=== PATIENT | male | born 1935 | race Caucasian/White ===

== ENCOUNTER 2019-04-16 13:37 | Emergency (ER) | payer MEDICARE, OTHER ==
--- NOTE | 2019-04-16 14:35 | EDM.PDOC ---
ED HPI GENERAL MEDICAL PROBLEM - General Chief Complaint: ENT Problem Stated Complaint: EARS ARE PLUGGED Time Seen by Provider: 04/16/19 14:20 Source of Information: Reports: Patient, Family History Limitations: Reports: No Limitations - History of Present Illness INITIAL COMMENTS - FREE TEXT/NARRATIVE: 83-year-old male had a physical or medical checkup a week ago and was told he had significant wax in his ears. He has tried some drops but it isn't helping, so he thought he would come in today to get his ears cleaned. He has no pain, just decreased hearing bilaterally. Onset: Gradual Duration: Week(s): (Over the past several weeks) Associated Symptoms: Reports: No Other Symptoms - Related Data Allergies Allergy/AdvReac Type Severity Reaction Status Date / Time No Known Allergies Allergy Verified 04/16/19 14:14 Home Meds: Home Meds . [Unable to Verify Home Med List] 04/16/19 [History] Past Medical History HEENT History: Reports: Impaired Vision Cardiovascular History: Reports: Heart Failure, High Cholesterol, Hypertension Respiratory History: Reports: SOB Gastrointestinal History: Reports: Chronic Constipation, GERD, Other (See Below) Other Gastrointestinal History: bleeding ulcer Musculoskeletal History: Reports: Back Pain, Chronic Oncologic (Cancer) History: Reports: Basal Cell Carcinoma, Other (See Below) Other Oncologic History: outside of stomach - Infectious Disease History Infectious Disease History: Reports: Chicken Pox, Measles, Mumps, Pertussis ( Whooping Cough), Rheumatic Fever - Past Surgical History Head Surgeries/Procedures: Reports: None HEENT Surgical History: Reports: None Cardiovascular Surgical History: Reports: Coronary Artery Bypass Respiratory Surgical History: Reports: None GI Surgical History: Reports: Colonoscopy Musculoskeletal Surgical History: Reports: Knee Replacement Oncologic Surgical History: Reports: None Dermatological Surgical History: Reports: None Social & Family History - Tobacco Use Smoking Status *Q: Former Smoker Used Tobacco, but Quit: Yes Month/Year Tobacco Last Used: 1964 - Caffeine Use Caffeine Use: Reports: Coffee - Recreational Drug Use Recreational Drug Use: No ED ROS ENT - Review of Systems Review Of Systems: See Below Constitutional: Denies: Fever, Chills Respiratory: Denies: Shortness of Breath Cardiovascular: Denies: Chest Pain GI/Abdominal: Denies: Nausea, Vomiting Neurological: Denies: Headache ED EXAM, ENT - Physical Exam Exam: See Below Exam Limited By: No Limitations General Appearance: Alert, No Apparent Distress Ears: Other (Patient does have fairly significant bilateral cerumen, not a complete impaction is a can see a small amount of tympanic membrane superiorly bilaterally and it appears normal) Head: Atraumatic Neck: Normal Inspection Respiratory/Chest: No Respiratory Distress, Lungs Clear Neurological: Alert, Oriented Psychiatric: Normal Affect, Normal Mood Skin: Warm, Dry Course - Vital Signs Last Recorded V/S: Last Vital Signs Temp 96.8 F 04/16/19 14:16 Pulse 67 04/16/19 14:16 Resp 16 04/16/19 14:16 BP 157/88 H 04/16/19 14:16 Pulse Ox 91 L 04/16/19 14:16 - Re-Assessments/Exams Free Text/Narrative Re-Assessment/Exam: 04/16/19 14:35 Bilateral irrigation was performed. 04/16/19 14:58 Irrigation was only partially successful, ear curettes were then used to remove a large amount of wax from both ears. Some additional irrigation cleared almost all the wax out of the right canal, the left still had some fairly significant cerumen but the tympanic membrane was well-visualized and his hearing was markedly improved. He'll recheck at the clinic in [place] when he gets home this week if he continues to have symptoms. Departure - Departure Time of Disposition: 15:03 Disposition: Home, Self-Care 01 Clinical Impression: Impacted cerumen of both ears - Discharge Information Instructions: Earwax Buildup, Adult Referrals: Long Emerson [Primary Care Provider] - Forms: ED Department Discharge Care Plan Goals: Keep ears clean if possible, and recheck in 2-5 days if not improved satisfactorily.
== END 2019-04-16 15:03 | disposition home or self-care (01) ==
LOC: JP.ED 13:37
DX: H61.23 Impacted cerumen, bilateral (principal); I11.0 Hypertensive heart disease with heart failure; E78.00 Pure hypercholesterolemia, unspecified; I50.9 Heart failure, unspecified; Z87.891 Personal history of nicotine dependence
CPT/HCPCS: 69210; 99282